=== PATIENT | male | born 1980 | race Caucasian/White ===

== ENCOUNTER 2021-09-14 20:04 | Emergency (ER) | payer OTHER ==
[~2021-09-14 20:04] MED LIST: CYCLOBENZAPRINE10 MG PO; LEVAQUIN500 MG PO; NORCO 5-325 TA1 EACH PO; TRAMADOL HCL50 MG PO
[2021-09-14 20:39] LABS: HEMOGLOBIN 13.9 gm/dl (14.0-17.5); RED BLOOD COUNT 4.58 M/UL (4.20-5.50); WHITE BLOOD COUNT 6.2 K/UL (4.5-11.0)
[2021-09-14 20:57] LABS: BUN/CREATININE RATIO 9 (0-10)
[2021-09-14] MEDS ORDERED: ZOFRAN ODT 4 MG4 MG PO (22:25)
== END 2021-09-14 23:00 | disposition home or self-care (01) ==
LOC: ER1 20:04
PROVIDERS: Physician Assistant
DX: U07.1 COVID-19 (principal); J06.9 Acute upper respiratory infection, unspecified; Z87.442 Personal history of urinary calculi; Z88.5 Allergy status to narcotic agent; F17.200 Nicotine dependence, unspecified, uncomplicated
CPT/HCPCS: 0240U; 71045; 80053; 85025; 93005; 99285